=== PATIENT | male | born 1970 | race Caucasian/White ===

== ENCOUNTER 2020-07-11 06:00 | Emergency (ER) | payer SELFPAY ==
[~2020-07-11] VITALS: Ht 165.1 cm; Wt 91.0 kg
[2020-07-11 06:03] VITALS: BP 140/92
== END 2020-07-11 07:00 | disposition left against medical advice (07) ==
LOC: ER 06:44
DX: Z53.21 Procedure and treatment not carried out due to patient leaving prior to being seen by health care provider (principal); E11.9 Type 2 diabetes mellitus without complications; F43.10 Post-traumatic stress disorder, unspecified